=== PATIENT | female | born 1995 | race Hispanic/Latino ===

== ENCOUNTER 2018-11-02 17:14 | Emergency (ER) | payer OTHER ==
--- NOTE | 2018-11-02 18:17 | RAD REPORT ---
EXAM DESCRIPTION: CT - Stone Protocol - 11/02/2018 6:10 pm CLINICAL HISTORY: Abdominal pain, right flank pain COMPARISON: CT July 2015 TECHNIQUE: Axial 5 mm thick images were obtained without oral or IV contrast. The [id number] span s the entirety of the system including uppermost abdomen and lung bases. All CT scans are performed using dose optimization technique as appropriate and may include automated exposure control or mA/KV adjustment according to patient size. FINDINGS: No hydronephrosis is present and no obstructing ureteral calculi. No suspicious renal mass es. Isodense masses and pyelonephritis are not excluded on a stone protocol CT scan. No urinary bladd er suspicious finding. No significant adrenal finding. Uterus and ovaries are grossly normal. Detail is limited in the absence of oral and IV contrast. Physiologic quantity of free fluid is present in t he cul de sac. Imaged portions of the liver, spleen and pancreas show no suspicious findings on non-contrast imaging . No gallbladder or biliary tree abnormality identified. No suspicious bowel findings. Appendicitis is not suspected. Patient does have few small mesenteric l ymph nodes the right lower quadrant and central abdomen. No hernia, mass or bulky lymphadenopathy noted. No free air, free fluid or inflammatory stranding. No significant bony abnormality. IMPRESSION: No hydronephrosis, obstructing calculus or acute finding identified. Isodense masses and pyelonephritis are not excluded on stone protocol technique. No appendicitis suspected. Patient does have small mesenteric lymph nodes present. Overall exam is limited in the absence of oral and IV contrast.
[2018-11-02 18:45] LABS: Urine Blood NEGATIVE (NEG); Urine Glucose NEGATIVE (NEG); Urine Protein NEGATIVE (NEG)
[2018-11-02 18:47] LABS: Basophils % 0.5 % (0-1.3); Hematocrit 43.7 % (36.0-45.0); Lymphocytes % 23.6 % (15.3-44.8); MPV 12.7 fL (7.6-11.3); RBC Red Blood Cell Count 4.71 M/uL (3.86-4.86)
[2018-11-02 19:01] LABS: BUN Blood Urea Nitrogen 13 mg/dL (7-18); Bicarbonate 28 mmol/L (21-32); Glucose Level 88 mg/dL (74-106); Potassium 3.7 mmol/L (3.5-5.1); Sodium Level 141 mmol/L (136-145)
[2018-11-02 19:07] LABS: Platelet Estimate DECR; Urine White Blood Cell Casts OK
[2018-11-02 19:08] LABS: Blood Morphology Comment NOT SEEN (NOT SEEN); Platelets, Giant PRESENT
[2018-11-02 19:14] LABS: Urine Amorphous Sediment 2+ /HPF (NONE SEEN); Urine Bacteria 20-50 /HPF (<20); Urine Culture Reflex Order REFLEXED
--- NOTE | 2018-11-02 19:21 | ER ---
Nurse's Notes [facility] Name: Sanjana Malcolm Age: 23 yrs Sex: Female : 1995 Arrival Date: 11/02/2018 Time: 17:19 Bed 15 Private MD: Diagnosis: Flank Pain Presentation: 11/02 17:19 Presenting complaint: Right flank pain that radiates to right groin x 2 hrs. Denies hb urinary s/s or fever. Transition of care: patient was not received from another setting of care. Onset of symptoms was November 02, 2018. Risk Assessment: Do you want to hurt yourself or someone else? Patient reports no desire to harm self or others. Initial Sepsis Screen: Does the patient meet any 2 criteria? No. Patient's initial sepsis screen is negative. Does the patient have a suspected source of infection? No. Patient's initial sepsis screen is negative. Care prior to arrival: None. 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 - Social history:: Smoking status: Patient/guardian denies using tobacco. - Ebola Screening: : No symptoms or risks identified at this time. Screenin:45 Abuse screen: Denies threats or abuse. Denies injuries from another. Nutritional aj1 screening: No deficits noted. Tuberculosis screening: No symptoms or risk factors identified. 19:15 Fall Risk IV access (20 points). Total Nicole Fall Scale indicates No Risk (0-24 pts). jb4 Assessment: 17:45 General: Appears in no apparent distress. uncomfortable, Behavior is calm, cooperative, aj1 appropriate for age. Pain: Complains of pain in left flank Pain radiates to pelvis. Neuro: Level of Consciousness is awake, alert, obeys commands, Oriented to person, place, time, situation. Cardiovascular: Patient's skin is warm and dry. Respiratory: Airway is patent Respiratory effort is even, unlabored, Respiratory pattern is regular, symmetrical. GI: No signs and/or symptoms were reported involving the gastrointestinal system. : Reports flank pain. EENT: No signs and/or symptoms were reported regarding the EENT system. Derm: No signs and/or symptoms reported regarding the dermatologic system. Skin is pink, warm \T\ dry. black. Musculoskeletal: No signs and/or symptoms reported regarding the musculoskeletal system. Circulation, motion, and sensation intact. 18:45 Reassessment: Patient appears in no apparent distress at this time. No changes from aj1 previously documented assessment. Patient and/or family updated on plan of care and expected duration. Pain level reassessed. Patient is alert, oriented x 3, equal unlabored respirations, skin warm/dry/pink. 19:15 Reassessment: Patient appears in no apparent distress at this time. Patient and/or jb4 family updated on plan of care and expected duration. Pain level reassessed. Patient is alert, oriented x 3, equal unlabored respirations, skin warm/dry/pink. 19:59 Reassessment: Patient appears in no apparent distress at this time. Patient and/or jb4 family updated on plan of care and expected duration. Pain level reassessed. Patient is alert, oriented x 3, equal unlabored respirations, skin warm/dry/pink. Vital Signs: 17:20 BP 96 / 63; Pulse 95; Resp 16; Temp 98.8; Pulse Ox 100% on R/A; Weight 55.34 kg; Height hb 5 ft. 4 in. (162.56 cm); Pain 7/10; 18:55 BP 92 / 66; Pulse 85; Resp 18; Pulse Ox 99% on R/A; aj1 19:59 BP 98 / 72; Pulse 90; Resp 16; Pulse Ox 100% on R/A; jb4 17:20 Body Mass Index 20.94 (55.34 kg, 162.56 cm) hb ED Course: 17:19 Patient arrived in ED. hb 17:20 Triage completed. hb 17:20 Arm band placed on. hb 17:22 Pascale Mendoza, ALETA is Primary Nurse. aj1 17:24 Loree Sloan FNP-C [facility]. kb 17:24 Kevin Miranda MD is Attending Physician. kb 17:37 Verbal reassurance given. mb4 17:45 Patient has correct armband on for positive identification. Bed in low position. aj1 17:45 No provider procedures requiring assistance completed. aj1 18:00 Inserted saline lock: 20 gauge in right antecubital area, using aseptic technique. aj1 20:00 IV discontinued, intact, bleeding controlled, No redness/swelling at site. Pressure jb4 dressing applied. Administered Medications: No medications were administered Outcome: 19:19 Discharge ordered by . kb 20:00 Discharged to home ambulatory. jb4 20:00 Condition: stable 20:00 Discharge instructions given to patient, Instructed on discharge instructions, follow up and referral plans. medication usage, Demonstrated understanding of instructions, follow-up care, medications, Prescriptions given X 1. 20:00 Patient left the ED. jb4 Signatures: Loree Sloan, ENTERTAINER & COMIC-C ENTERTAINER & COMIC-Pascale [place] RN RN aj1 Mary Montes, Deo Roger RN, RN RN jb4 Lennie Montes [facility]
--- NOTE | 2018-11-02 19:21 | EDPHYS ---
Physician Documentation [facility] Name: Sanjana Malcolm Age: 23 yrs Sex: Female : 1995 Arrival Date: 11/02/2018 Time: 17:19 Bed 15 Private MD: ED Physician Kevin Miranda HPI: 11/02 19:18 This 23 yrs old Female presents to ER via Ambulatory with complaints of Flank kb Pain. 19:18 The patient complains of pain in the right flank. The pain does not radiate. Onset: The kb symptoms/episode began/occurred 2 month(s) ago, and became worse 2.5 hour(s) ago. Modifying factors: The symptoms are alleviated by nothing. the symptoms are aggravated by nothing. Associated signs and symptoms: The patient has no apparent associated signs or symptoms. Severity of pain: At its worst the pain was moderate in the emergency department the pain is unchanged. The patient has experienced similar episodes in the past, a few times, today's symptoms are similar, to previous stone. The patient has not recently seen a physician. 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 - Social history:: Smoking status: Patient/guardian denies using tobacco. - Ebola Screening: : No symptoms or risks identified at this time. ROS: 19:17 Constitutional: Negative for fever, chills, and weight loss, Cardiovascular: Negative kb for chest pain, palpitations, and edema, Respiratory: Negative for shortness of breath, cough, wheezing, and pleuritic chest pain, Abdomen/GI: Negative for abdominal pain, nausea, vomiting, diarrhea, and constipation, : Negative for injury, bleeding, discharge, and swelling, MS/Extremity: Negative for injury and deformity, Skin: Negative for injury, rash, and discoloration, Neuro: Negative for headache, weakness, numbness, tingling, and seizure. 19:17 Back: Positive for flank pain, on the right. Exam: 19:17 Constitutional: This is a well developed, well nourished patient who is awake, alert, kb and in no acute distress. Head/Face: Normocephalic, atraumatic. ENT: Nares patent. No nasal discharge, no septal abnormalities noted. Tympanic membranes are normal and external auditory canals are clear. Oropharynx with no redness, swelling, or masses, exudates, or evidence of obstruction, uvula midline. Mucous membranes moist. Neck: Trachea midline, no thyromegaly or masses palpated, and no cervical lymphadenopathy. Supple, full range of motion without nuchal rigidity, or vertebral point tenderness. No Meningismus. Chest/axilla: Normal chest wall appearance and motion. Nontender with no deformity. No lesions are appreciated. Cardiovascular: Regular rate and rhythm with a normal S1 and S2. No gallops, murmurs, or rubs. Normal PMI, no JVD. No pulse deficits. Respiratory: Lungs have equal breath sounds bilaterally, clear to auscultation and percussion. No rales, rhonchi or wheezes noted. No increased work of breathing, no retractions or nasal flaring. Abdomen/GI: Soft, non-tender, with normal bowel sounds. No distension or tympany. No guarding or rebound. No evidence of tenderness throughout. Back: No spinal tenderness. No costovertebral tenderness. Full range of motion. Skin: Warm, dry with normal turgor. Normal color with no rashes, no lesions, and no evidence of cellulitis. MS/ Extremity: Pulses equal, no cyanosis. Neurovascular intact. Full, normal range of motion. Neuro: Awake and alert, GCS 15, oriented to person, place, time, and situation. Cranial nerves II-XII grossly intact. Motor strength 5/5 in all extremities. Sensory grossly intact. Cerebellar exam normal. Normal gait. Vital Signs: 17:20 BP 96 / 63; Pulse 95; Resp 16; Temp 98.8; Pulse Ox 100% on R/A; Weight 55.34 kg; Height hb 5 ft. 4 in. (162.56 cm); Pain 7/10; 18:55 BP 92 / 66; Pulse 85; Resp 18; Pulse Ox 99% on R/A; aj1 19:59 BP 98 / 72; Pulse 90; Resp 16; Pulse Ox 100% on R/A; jb4 17:20 Body Mass Index 20.94 (55.34 kg, 162.56 cm) hb MDM: 17:24 Patient medically screened. kb 19:16 Data reviewed: vital signs, nurses notes. Data interpreted: Pulse oximetry: on room air kb is 99 %. Interpretation: normal. Counseling: I had a detailed discussion with the patient and/or guardian regarding: the historical points, exam findings, and any diagnostic results supporting the discharge/admit diagnosis, lab results, radiology results, the need for outpatient follow up, a family practitioner, to return to the emergency department if symptoms worsen or persist or if there are any questions or concerns that arise at home. 11/02 17:33 Order name: Urine Microscopic Only 11/02 17:37 Order name: CBC with Diff 11/02 17:37 Order name: Basic Metabolic Panel 11/02 17:42 Order name: Urine Dipstick--Ancillary (enter results) 11/02 17:42 Order name: Urine --Ancillary (enter results) 11/02 18:48 Order name: Urine --Ancillary; Complete Time: 19:00 EDLA 11/02 17:33 Order name: Urine Dipstick-Ancillary (obtain specimen); Complete Time: 18:50 kb 11/02 17:37 Order name: CT Stone Protocol 11/02 18:48 Order name: Urine Dipstick-Ancillary; Complete Time: 19:00 EDLA 11/02 18:58 Order name: CBC with Automated Diff; Complete Time: 19:06 EDLA 11/02 19:03 Order name: Basic Metabolic Panel; Complete Time: 19:00 EDLA 11/02 19:10 Order name: CBC Smear Scan; Complete Time: 19:06 EDLA 11/02 19:16 Order name: Urine Microscopic Only; Complete Time: 19:12 EDLA 11/02 19:57 Order name: CT; Complete Time: 19:54 EDLA 11/02 17:37 Order name: IV Start; Complete Time: 18:50 kb Administered Medications: No medications were administered Disposition: 11/03 08:06 Co-signature as Attending Physician, Kevin Miranda MD I agree with the assessment and kdr plan of care. Disposition: 11/02/18 19:19 Discharged to Home. Impression: Flank Pain. - Condition is Stable. - Discharge Instructions: Flank Pain, [id number]. - Prescriptions for Diclofenac Sodium 75 mg Oral Tablet, Delayed Release (E.C.) - take 1 tablet by ORAL route 2 times per day As needed; 30 tablet. - Medication Reconciliation Form, Thank You Letter, Antibiotic Education, Prescription Opioid Use, Work release form form. - Follow up: Emergency Department; When: As needed; Reason: Worsening of condition. Follow up: Private Physician; When: 2 - 3 days; Reason: Recheck today's complaints, Continuance of care, Re-evaluation by your physician. Signatures: Dispatcher [employer] EDMS Loree Sloan, HIGINIO-C SOLE BLACKER-CkKevin Cheng MD MD [facility] Mary Montes, ALETA RN Deo August, ALETA RN jb4 Corrections: (The following items were deleted from the chart) 11/02 20:00 19:19 11/02/2018 19:19 Discharged to Home. Impression: Flank Pain. Condition is Stable. jb4 Forms are Medication Reconciliation Form, Thank You Letter, Antibiotic Education, Prescription Opioid Use. Follow up: Emergency Department; When: As needed; Reason: Worsening of condition. Follow up: Private Physician; When: 2 - 3 days; Reason: Recheck today's complaints, Continuance of care, Re-evaluation by your physician. kb
[2018-11-02 20:26] VITALS: TEMP 98.8
[2018-11-02 20:29] VITALS: BP 98/72; O2SAT 100
== END 2018-11-02 20:00 | disposition home or self-care (01) ==
LOC: ER 17:14
DX: R10.9 Unspecified abdominal pain (principal)
CPT/HCPCS: 36415; 74176; 76377; 80048; 81003; 81015; 81025; 85025; 87086; 87088; 99283